=== PATIENT | female | born 2000 | race Hispanic/Latino ===

== ENCOUNTER 2024-01-27 15:57 | Outpatient (CLI) | payer BC | END 2024-01-27 15:58 | disposition home or self-care (01) | LOC: CSHWCC 15:57 | PROVIDERS: ATTEND Nurse Practitioner Family | DX: T81.32XD Disruption of internal operation (surgical) wound, not elsewhere classified, subsequent encounter (principal) | CPT/HCPCS: 97605 ==

== ENCOUNTER 2024-01-31 16:55 | Outpatient (CLI) | payer BC | END 2024-01-31 16:56 | disposition home or self-care (01) | LOC: CSHWCC 16:55 | PROVIDERS: ATTEND Nurse Practitioner Family | DX: Z43.2 Encounter for attention to ileostomy (principal); T81.32XD Disruption of internal operation (surgical) wound, not elsewhere classified, subsequent encounter | CPT/HCPCS: 11043; 11046; 97605 ==

== ENCOUNTER 2024-03-13 12:45 | Outpatient (CLI) | payer BC | END 2024-03-13 12:46 | disposition home or self-care (01) | LOC: CSHWCC 12:45 | PROVIDERS: ATTEND Family Medicine | DX: Z43.2 Encounter for attention to ileostomy (principal); T81.32XD Disruption of internal operation (surgical) wound, not elsewhere classified, subsequent encounter | CPT/HCPCS: 11042; 97607 ==

== ENCOUNTER 2024-03-16 15:04 | Outpatient (CLI) | payer BC | END 2024-03-16 15:05 | disposition home or self-care (01) | LOC: CSHWCC 15:04 | PROVIDERS: ATTEND Nurse Practitioner Family | DX: T81.32XD Disruption of internal operation (surgical) wound, not elsewhere classified, subsequent encounter (principal); Z43.2 Encounter for attention to ileostomy | CPT/HCPCS: 97605 ==

== ENCOUNTER 2024-03-20 15:39 | Outpatient (CLI) | payer BC | END 2024-03-20 15:40 | disposition home or self-care (01) | LOC: CSHWCC 15:39 | PROVIDERS: ATTEND Nurse Practitioner Family | DX: T81.32XD Disruption of internal operation (surgical) wound, not elsewhere classified, subsequent encounter (principal); Z43.2 Encounter for attention to ileostomy | CPT/HCPCS: 11042 ==

== ENCOUNTER 2024-03-27 10:11 | Outpatient (CLI) | payer BC | END 2024-03-27 10:12 | disposition home or self-care (01) | LOC: CSHWCC 10:11 | PROVIDERS: ATTEND Nurse Practitioner Family | DX: Z43.2 Encounter for attention to ileostomy (principal); T81.32XD Disruption of internal operation (surgical) wound, not elsewhere classified, subsequent encounter | CPT/HCPCS: 11042 ==

== ENCOUNTER 2025-08-07 09:32 | Outpatient (CLI) | payer BC | END 2025-08-07 09:33 | disposition home or self-care (01) | LOC: CSHRAD 09:32 | PROVIDERS: ATTEND Family Medicine | DX: M25.572 Pain in left ankle and joints of left foot (principal); M79.89 Other specified soft tissue disorders ==